=== PATIENT | male | born 1935 | race Caucasian/White ===

== ENCOUNTER 2016-10-31 13:41 | Inpatient (IN) ==
--- NOTE | 2016-10-31 14:51 | PROVIDER DOCUMENTATION ---
Addendum entered and electronically signed by Irma Franco Scribe 10/31/16 23:15 : EKG Interpretation - EKG Time of EKG reading by physician:: 23:14 EKG Read and Signed by:: Harpreet Etienne Rate: 73 Rhythm: sinus rhythm with 1st degree block Addendum entered and electronically signed by Irma Franco Scribe 10/31/16 19:31 : Departure - Departure Time of Disposition Order: 19:30 DIAGNOSIS: Double vision, Generalized weakness, Near syncope Fall Qualifiers: Encounter type: initial encounter Qualified Code(s): W19.XXXA - Unspecified fall, initial encounter Disposition: ADMITTED INPATIENT 09 Certified Medical Emergency: Emergent Condition: Stable Additional Instructions: FOLLOW UP WITH PRIMARY CARE DOCTOR ON FRIDAY FOLLOW UP WITH OPHTHALMOLOGY 1-2 WEEKS ED Follow Up Instructions: You have been treated by a care provider in the Emergency Department. These instructions are being provided to you so you can have an understanding of how to care for yourself upon discharge. Upon discharge from the Emergency Department, you are responsible for making arrangements for follow-up care by a physician of your choice. Take all prescribed medications as directed. Return to the Emergency Department immediately for any new or worsening symptoms. You may call the Physician Referral phone number at [phone] to obtain a list of Physicians who are taking new patients. Referrals: Zack Arreguin MD [Primary Care Provider] - Instructions: Fall Prevention and Home Safety, [id number] Addendum entered and electronically signed by Irma Franco Scribe 10/31/16 19:26 : Progress - XRAY XRAY Study: Chest Impression: Normal XRAY Interpretation: no pneumonia - CONSULTS/PCP/HOSPITALIST Notification #1 *Consult/PCP/Hospitalist*: Time Discussed: 19:25 Consult Disposition: Admit Addendum entered and electronically signed by Laisha Bueno Scribe 10/31/16 17: 51: Progress - CHANGE OF SHIFT REPORT (ED Provider) Report Given and Care Transferred to:: Time of Transfer: 18:00 Items Pending: Labs, Physician Consult/Arrival Comment: WAITING ON LABS TO COME BACK. IF NEEDED WILL CALL PCP FOR FURTHER TREATMENT. Addendum entered and electronically signed by Laisha Bueno Scribe 10/31/16 16: 40: Additional Progress - ADDITIONAL PLAN OF CARE/RESULTS Additional Progress/Plan/Lab Results: PT WAS WALKED TO BATHROOM BY NURSE AND NURSE WAS HOLDING PT UP WHOLE TIME DUE TO PT LEGS BEING WEAK. FAMILY IS REQUESTING FURTHER TREATMENT. DR LY HAS AGREED TO DO SOME LAB WORK AND CHECK KIDNEYS/BLOOD. PCP WILL BE CALLED WHEN ALL LAB RESULTS ARE BACK TO DISCUSS FURTHER TREATMENT . WORK UP HAVE BEEN ORDERED DUE TO PT WEAKNESS. - ADDITIONAL REASSESSMENT Time Reassessed: 16:35 Status: other (PT WAS WALKED TO BATHROOM BY NURSE AND NURSE WAS HOLDING PT DUE TO PT LEGS WEAK. FAMILY IS CONCEREND AND WOULD LIKE FURTHER TREATMENT. PT WILL NOW HAVE LABS DONE AND PCP WILL BE RECALLED TO DISCUSS FURTHER TREATMENT.) Original Note: HPI-General Adult - General Chief Complaint: Fall Stated Complaint: fall, L shoulder pain, double vision Time Seen by Provider: 10/31/16 13:48 Source: patient, family (CHILDREN) - History of Present Illness -Gen Adult Nature of Presenting Problems: 81 y/o M presents to ED cc of fall. Pt states he has been stressful situation with his being in rehab. Pt states he did not sleep well last night and was reaching for phone this am and had fell out of his bed hitting his head. Pt unsure where he hit his head but denies any LOC. Pt is denying any pain at this time. Pt states he takes 5 medications and is sure one is a blood thinner. Pt states he has been having some depression and anxiety. Pt states after hitting his head he has been dizzy and having of double vision . Daughter is concerned about pt eyes "not looking right". Location of Pain/Injury: reports: none Pain Radiation: reports: no radiation Quality of Pain: reports: none Severity: reports: mild Onset/Duration: reports: just prior to arrival Timing: reports: still present Context/Activities at Onset: reports: light activity Modifying Factors: improves with: nothing Associated Symptoms: reports: other (DOUBLE VISION/ DIZZY). denies: chest pain , fever/chills, nausea, shortness of breath, vomiting Similar Symptoms Previously?: No Recently seen or treated by another doctor?: No Review of Systems - Adult - REVIEW OF SYSTEMS - ADULT Constitutional: denies: chills, fever Eyes: reports: double vision, other (dizzy) Cardiovascular: denies: chest pain, palpitations Respiratory: denies: cough, shortness of breath Gastrointestinal: denies: abdominal pain, diarrhea, nausea, vomiting Neurological: reports: dizziness/vertigo. denies: headache/migraines, slurred speech, syncope Past History - Adult - PAST MEDICAL HISTORY-ADULT Review of Records: reports: Old Records Reviewed, Nursing Assessment Review Cardiovascular: reports: HTN, hyperlipidemia Endocrine/Immune: reports: Diabetes, thyroid disorder - IMMUNIZATION STATUS Childhood Immunizations: See Nurse Assessment Flu Vaccine: See Nurse Assessment - SOCIAL HISTORY Smoking: quit greater than 1 year Substance Use: denies Living Situation: care facility Physical Exam-General - PHYSICAL EXAM-ADULT Initial Vital Signs Reviewed: Yes - CONSTITUTIONAL General Appearance: appears well, alert, no apparent distress - EYES Eyes: PERRL/EOMI, pink conjunctivae, fundi clear, no AV nicking - HEAD, EARS, NOSE, MOUTH & THROAT HENMT: normocephalic/atraumatic, moist mucous membranes, normal ENT inspection - NECK Neck: non-tender, full range of motion, supple, normal inspection. negative: C- spine tenderness - RESPIRATORY Respiratory: chest non-tender, lungs clear, normal breath sounds - CARDIOVASCULAR Cardiovascular: normal peripheral pulses, regular rate, rhythm, no edema - GASTROINTESTINAL (ABDOMEN) Abdominal Exam: normal bowel sounds, non tender, soft - LYMPHATIC Lymphatic: no adenopathy - MUSCULOSKELETAL Back Exam: normal inspection, no CVA tenderness, no vertebral tenderness Extremity: normal range of motion, non-tender - SKIN Integumentary: normal color, normal turgor, warm/dry - NEUROLOGIC Neurologic: drop forger II-XII nml as tested, grossly normal, no motor/sensory deficits - PSYCHIATRIC Psych/Mental Status: normal mood/affect, normal thought content, normal thought process, oriented x 3 Progress - PLAN OF CARE/RESULTS Progress/Plan/Lab Results: PLAN: URINE,SCAN,EKG Orders Category Date Time Status FSBS [Finger Stick Blood Sugar (ED)] DIRECTED Care 10/31/16 14:37 Active HEAD W/O CONTRAST [CT] Stat Exams 10/31/16 14:35 Completed UA NIMS W/REFLEX CULT [URINALYSIS] Stat Lab 10/31/16 14:37 Uncollected Vital Signs - 24 hr 10/31/16 14:04 Temperature 98.2 F Pulse Rate 90 Respiratory 18 Rate Blood Pressure 135/72 O2 Sat by Pulse 96 Oximetry - REASSESSMENT Reassessment #1 Time Reassessed: 15:50 Status: improving Reassessment Comment: ready to go home. Will check FSBS. - CT/MRI 1 CT Study: Head Impression: Normal (atrophic changes and chronic microvascular ischmic changes. No evidence of intracranial injury. No hemorrhage or mass effect./) CT Results: see impression - CONSULTS/PCP/HOSPITALIST Notification #1 *Consult/PCP/Hospitalist*: PCP Time Discussed: 16:19 Consult Disposition: F/U in office (on friday) Departure - Departure Time of Disposition Order: 15:50 DIAGNOSIS: Double vision Fall Qualifiers: Encounter type: initial encounter Qualified Code(s): W19.XXXA - Unspecified fall, initial encounter Disposition: HOME 01 Certified Medical Emergency: Emergent Condition: Stable Additional Instructions: FOLLOW UP WITH PRIMARY CARE DOCTOR ON FRIDAY FOLLOW UP WITH OPHTHALMOLOGY 1-2 WEEKS ED Follow Up Instructions: You have been treated by a care provider in the Emergency Department. These instructions are being provided to you so you can have an understanding of how to care for yourself upon discharge. Upon discharge from the Emergency Department, you are responsible for making arrangements for follow-up care by a physician of your choice. Take all prescribed medications as directed. Return to the Emergency Department immediately for any new or worsening symptoms. You may call the Physician Referral phone number at [phone] to obtain a list of Physicians who are taking new patients. Referrals: Zack Arreguin MD [Primary Care Provider] - Attestation - Scribe Verification/Attestation Scribe:: Laisha Bueno Acting as Scribe for:: Arely Ly Scribe documention review:: This chart was documented by a scribe and accurately reflects the service the provider performed and the decisions made by the provider.
--- NOTE | 2016-10-31 15:37 | Diag Imaging Result Document ---
PROCEDURE NAME: HEAD W/O CONTRAST - 10/31/2016 CT HEAD WITHOUT CONTRAST: FINDINGS: A dose-reduction protocol was used. No comparison CT scans available. Exam is compared with the MRI brain of 04/29/2012. There are atrophic changes and chronic microvascular ischemic changes. There is no indication of recent infarct, although acute infarcts may not be immediately visible. There is no evidence of intracranial hemorrhage, mass effect or midline shift. There is no skull fracture. IMPRESSION: Atrophic changes and chronic microvascular ischemic changes. No evidence of intracranial injury. No hemorrhage or mass effect.
[2016-10-31 16:46] LABS: URINE CULTURE NEEDED? NO; URINE MICRO REVIEW NEEDED? NO; URINE SOURCE CLEAN CATCH
[2016-10-31 16:51] LABS: BILIRUBIN URINE NEGATIVE (NEGATIVE); BLOOD URINE NEGATIVE (NEGATIVE); COLOR YELLOW; GLUCOSE URINE NEGATIVE (NEGATIVE); LEUKOCYTES URINE NEGATIVE (NEGATIVE); NITRITE URINE NEGATIVE (NEGATIVE); PROTEIN URINE TRACE mg/dL (NEGATIVE); SP GRAVITY URINE 1.025; TURBIDITY URINE CLEAR (CLEAR); UROBILINOGEN URINE 8 mg/dL (NORMAL)
[2016-10-31 16:52] LABS: UR EPITHELIAL CELLS <10 /HPF (<10); URINE BACTERIA NEGATIVE /HPF; URINE RBC <10 /HPF (<10); URINE WBC <10 /HPF (<10)
[2016-10-31 17:42] LABS: MANUAL DIFF NEEDED? NO
[2016-10-31 17:47] LABS: BASO% 0.4 % (0.0-0.8); EOS# 0.01 X1000 (0.0-0.7); EOS% 0.1 % (0.0-10.0); HEMATOCRIT 43.7 % (42.0-52.0); HEMOGLOBIN 14.8 g/dL (14.0-18.0); IMM GRAN# 0.04 X1000 (0.0-0.04); IMM GRAN% 0.3 % (0.0-0.5); LYMPH# 2.37 X1000 (1.2-3.4); LYMPH% 16.9 % (20.5-51.1); MCH 29.5 PG (27-31); MCHC 33.9 g/dL (33-37); MCV 87.2 FL (81-99); MONO# 1.21 X1000 (0.11-0.59); MONO% 8.6 % (1.7-9.3); MPV 8.7 FL (7.4-10.4); NEUT% 73.7 % (42.2-75.2); PLT 345 X1000 (130-400); RBC 5.01 XMIL (4.7-6.1)
[2016-10-31 17:59] LABS: INR 1.06; PROTIME 11.2 Seconds (9.2-11.7); PTT 27.9 Seconds (22.0-36.0)
[2016-10-31 18:04] LABS: AGAP 17; ALBUMIN 4.3 g/dL (3.5-5.0); ALKALINE PHOSPHATASE 69 U/L (32-122); BUN 18 mg/dL (8-22); CALCIUM 9.6 mg/dL (8.8-10.2); CHLORIDE 98 mmol/L (98-107); CK PROFILE 56 U/L (24-204); COSMO 280; GOT 16 U/L (10-34); GPT 11 U/L (10-44); MAGNESIUM 2.1 mg/dL (1.5-2.7); POTASSIUM 4.3 mmol/L (3.5-5.1); SODIUM 139 mmol/L (136-145); TCO2 24 mmol/L (25-35); TOTAL BILIRUBIN 0.55 mg/dL (0.20-1.00); TOTAL PROTEIN 7.7 g/dL (6.3-8.3)
--- NOTE | 2016-10-31 18:33 | Diag Imaging Result Document ---
PROCEDURE NAME: CHEST-PORTABLE - 10/31/2016 PORTABLE CHEST: COMPARISON: No comparison films. FINDINGS: The lungs are well expanded. The heart is not enlarged. The vessels are not distended. There are no infiltrates. No pleural effusions. IMPRESSION: No pneumonia.
[2016-10-31] MEDS ORDERED: ZOFRAN IV PRN (23:21)
[2016-10-31] MEDS ORDERED: NS 1,000 ML IV SCH (23:21)
[2016-10-31] MEDS ORDERED: TYLENOL PO PRN (23:21)
[2016-10-31] MEDS ORDERED: PROTONIX IV SCH (23:30)
[2016-10-31] MEDS ORDERED: SODIUM CHLORIDE 0.9% INJ SCH (23:30)
[2016-10-31] MEDS: ASPIRIN PO SCH (23:44)
[2016-10-31] MEDS: LOVENOX SUBQ SCH (23:45)
--- NOTE | 2016-11-01 00:50 | HISTORY AND PHYSICAL ---
PRIMARY CARE PROVIDER: Dr. Arreguin. DATE AND TIME OF HISTORY AND PHYSICAL: October 31, 2016 at 8:00 p.m. CHIEF COMPLAINT: Weakness, fall, and double vision. HISTORY OF PRESENT ILLNESS: Mr. Gibbons is an 81-year-old male who presented to the ER this afternoon after having a fall this morning. Patient states that he was trying to get up out of bed and fell due to his legs feeling very weak. He said he fell out of the bed and reported that he also hit his head possibly on a bedside table. The patient denied any loss of consciousness and denies any headache at this time. He also did report some left shoulder pain at the time of the fall as well. He reports that he fell at 8:30 this morning and that since this time he has also had double vision. He also reported at the time of the fall that he was very dizzy though this has subsided at this time. Patient's family, which was his son at bedside, did also report that his right eye looked different as well. It does appear the patient has a slight droop noted to his right eye also. The patient does reside at [facility]. Patient denied any of these symptoms prior to his fall this morning though his son did report over the past 3 months that his father has progressively gotten more weak. He does require the assistance of a wheelchair and walker at [facility]. The patient also reported that at the time of the fall he did have a loss of bowel. He reports that he has approximately 2 bowel movements a day and that he has noticed over the past few months that his stools have been more loose than normal though he did report that they were of normal brown color and he denied any bloody or black, tarry stools. Patient also denied any numbness or tingling in extremities. Upon evaluation in the ER, a CT head was performed which did not show any acute intracranial abnormalities. Patient did have a slightly white blood cell count of 14,000 though his chest x- ray at this time showed no acute abnormalities. No pneumonia. His urinalysis did not show any signs of infection. He denied any headache, chest pain, shortness of breath, abdominal pain, nausea, vomiting, dysuria, or urinary frequency, and denied any pain, numbness, or tingling in extremities. At this time, we will admit the patient for further treatment and evaluation of his weakness and diplopia and we will evaluate him for possible CVA rule out. REVIEW OF SYSTEMS: A 10-point review of systems was conducted with the patient and all were negative except for pertinent positives mentioned in the above HPI. PAST MEDICAL HISTORY: 1. Diabetes mellitus type 2. 2. Hyperlipidemia. 3. Hypertension. 4. Hypothyroidism. PAST SURGICAL HISTORY: 1. Neck surgery. 2. Total left knee replacement. 3. Achilles tendon surgery on his right extremity. SOCIAL HISTORY: Patient is a former smoker. He reports that he smoked 2 packs per day for approximately 20 years though quit smoking at the age of 34. ALLERGIES: Patient reports no known allergies. HOME MEDICATIONS: 1. Prozac 40 mg p.o. daily. 2. Glipizide XL 2.5 mg 1 p.o. daily. 3. Levothyroxine 50 mcg 1 p.o. daily. 4. Lisinopril 5 mg tablet 1 p.o. daily. 5. Metformin 850 mg p.o. twice a day. 6. Pravastatin 40 mg 1 p.o. at bedtime. DIAGNOSTIC DATA: Laboratory results: White blood cell count 14. Hemoglobin 14.8. Hematocrit 43.7. Platelet count 345. PT 11.2. INR 1.06. PTT 27.9. D-dimer 0.16. Sodium 139. Potassium 4.3. Chloride 98. Bicarbonate 24. BUN is 18. Creatinine 0.9. Glucose 112. Calcium 9.6. Magnesium 2.1. Total bilirubin 0.55. AST 16. ALT 11. Alkaline phosphatase 69. CK is 56. Troponin was less than 0.01. ProBNP 147. A urinalysis obtained via clean catch was positive for trace protein. It was negative for ketones, blood, nitrites, leukocytes, or bacteria. CT of the head noncontrast showed atrophic changes and chronic microvascular ischemic changes though no evidence of intracranial injury. No hemorrhage or mass effect. Chest portable showed no pneumonia. EKG showed a sinus rhythm with a first-degree AV block and nonspecific T-wave abnormality at a rate of 73. PHYSICAL EXAMINATION: VITAL SIGNS: Temperature 98.2, heart rate 87, respirations 18, blood pressure 138/78, oxygen saturation is 97% room air. GENERAL: Mr. Gibbons is a very pleasant 81-year-old male who is resting comfortably in the ER stretcher in no acute distress, is awake, alert, able to answer all questions appropriately. HEENT: Head is atraumatic, normocephalic. Pupils are equal, round, reactive to light, are 3 mm bilaterally and brisk. Extraocular movements were intact except for the patient did have impaired adduction of his right eye. He also did report some double vision but this was only assessed when the patient vision was tested with both eyes. This was not present when the patient's eyes were tested unilaterally. Sclerae are white. No lesions noted. Subconjunctivae were pink. Oral mucosa is moist. Oropharynx is clear. NECK: Supple. Trachea midline. CARDIOVASCULAR: Patient has a normal S1, S2. No murmurs, gallops, or rubs appreciated with a regular rate and rhythm. PULMONARY: Patient has symmetrical chest expansion bilaterally. Lung sounds are clear to auscultation in bilateral full wagner. ABDOMEN: Soft, nontender, nondistended though the patient did have a slightly protuberant abdomen noted. Bowel sounds were present in all 4 quadrants, were normoactive. EXTREMITIES: No cyanosis, clubbing or edema noted. Pulse, motor, and sensory are intact in all extremities as well. Pedal pulses were 3 plus bilaterally. MUSCULOSKELETAL: Patient did have good range of motion in all extremities. Muscle grasp was equal bilaterally though the patient did have some slight weakness noted in his right lower extremity compared to the left. INTEGUMENTARY: Patient's skin is pink, warm, dry, and intact. No lesions or sores noted. NEUROLOGICAL: Patient is alert and oriented times 3. Cranial nerves II through XII are grossly intact except for the above abnormality mentioned with his extraocular movements and having impaired adduction of the right eye. He also had reported slight weakness noted in his right lower extremity on examination compared to his left and the patient also did have a slight droop noted to his right eye and right eyebrow on examination though he did not have any facial droop noted. No arm drift noted and speech was clear and understandable. ASSESSMENT AND PLAN: 1. Cerebrovascular accident. Given that the patient does have some drooping noted to his right eye as well as the right-sided weakness, we are concerned that he may have a CVA. Also, with the impaired adduction of his right eye we are concerned also for him having some medial rectus muscle weakness. We have ordered for the patient to have a neurology consult with Dr. Marino as well as an MRA and MRI of the brain as well as an MRA of the neck in the morning. We have also ordered an echocardiogram as well. We will give him an 81 mg aspirin daily. We will do neurologic checks as well as a swallowing screen and he will remain NPO until this is performed. We will also implement aspiration precautions as well and continue to monitor his neurologic status closely and await the results of these studies. 2. Weakness. We will continue with treatment as mentioned per number 1. 3. Diplopia. We will continue with treatment as mentioned for number 1. 4. Leukocytosis. The patient did sustain a fall. This could be reactive related to that though at this time the patient does not exhibit any signs of infection. His chest x-ray was clear. His urine is clear. He does not complain of any chest, shortness of breath, or abdominal pain, or urinary symptoms, and denied any fever, chills, or body aches. We will continue to monitor this as well. 5. Diabetes mellitus type 2. Given that the patient will receive contrast in the morning for his MRI, we will hold his metformin and glipizide and place him on a low dose sliding scale lispro insulin. We also placed an order for a hemoglobin A1c. 6. Hypertension. We will continue the patient's blood pressure medicines of lisinopril and continue to follow. 7. Hyperlipidemia. We will continue the patient's pravastatin and have ordered the patient to have a lipid profile drawn in the morning and we will await those results. 8. Hypothyroidism. We have ordered a TSH and are awaiting those results at this time and we will continue the patient levothyroxine. The patient placed on the medical floor with telemetry. He will have vital signs q.4 hours. DVT prophylaxis provided with Lovenox 40 mg subcutaneous q.24 hours. We will do strict intake and output. We have also placed a consult with Case Management and Draw Press Operator for possible rehab placement upon discharge. Further orders and recommendations pending hospital course, diagnostic studies, and physician evaluation. Dictated by MALENA Hodge for Chad Tejada MD
[2016-11-01] MEDS: HUMALOG SUBQ SCH ×5 (04:49→21:51)
[2016-11-01 05:31] LABS: MANUAL DIFF NEEDED? NO
--- NOTE | 2016-11-01 05:32 | EKG Report ---
Test Performed on : 10/31/2016 9:22:32 PM Test Reason : Stroke,Weakness, and Fall Blood Pressure : / mmHG Vent. Rate : 073 BPM Atrial Rate : 073 BPM P-R Int : 236 ms QRS Dur : 078 ms QT Int : 378 ms P-R-T Axes : 075 017 076 degrees QTc Int : 416 ms Sinus rhythm. with 1st degree AV block. Nonspecific T wave abnormality Abnormal ECG No previous ECGs available Unconfirmed Result
[2016-11-01 05:35] LABS: BASO% 0.5 % (0.0-0.8); EOS% 1.7 % (0.0-10.0); HEMATOCRIT 40.5 % (42.0-52.0); HEMOGLOBIN 13.6 g/dL (14.0-18.0); IMM GRAN# 0.03 X1000 (0.0-0.04); IMM GRAN% 0.2 % (0.0-0.5); LYMPH# 3.52 X1000 (1.2-3.4); LYMPH% 29.1 % (20.5-51.1); MCH 29.6 PG (27-31); MCHC 33.6 g/dL (33-37); MONO# 1.29 X1000 (0.11-0.59); MONO% 10.7 % (1.7-9.3); MPV 8.5 FL (7.4-10.4); NEUT% 57.8 % (42.2-75.2); PLT 308 X1000 (130-400)
[2016-11-01 05:48] LABS: HEMOGLOBIN A1C 5.3 % (4.8-6.0)
[2016-11-01 05:50] LABS: AGAP 15; BUN 17 mg/dL (8-22); CALCIUM 8.9 mg/dL (8.8-10.2); CHLORIDE 102 mmol/L (98-107); COSMO 280; POTASSIUM 3.9 mmol/L (3.5-5.1); SODIUM 139 mmol/L (136-145); TCO2 22 mmol/L (25-35)
--- NOTE | 2016-11-01 09:25 | Diag Imaging Result Document ---
PROCEDURE NAME: MRI BRAIN W W/O CONTRAST - 11/01/2016 MRI BRAIN WITHOUT AND WITH INTRAVENOUS CONTRAST: COMPARISON: 10/31/2016, 04/29/2012. FINDINGS: Stable diffuse atrophy. Stable moderate periventricular white matter chronic microvascular disease. No intracranial mass or hemorrhage. No restricted diffusion. No abnormal contrast enhancement. Midline structures are grossly normal. IMPRESSION: Stable atrophy and chronic microvascular disease. No acute abnormality.
--- NOTE | 2016-11-01 09:51 | Diag Imaging Result Document ---
PROCEDURE NAME: MRA BRAIN W/O CONTRAST - 11/01/2016 MR ANGIOGRAM OF THE HEAD: COMPARISON: None. FINDINGS: Noncontrast time of flight technique was used. There is loss of signal throughout the basilar artery above the level of the anterior inferior cerebellar arteries. The vertebral arteries, themselves, are patent. There is re-appearance of signal at the bifurcation into the posterior cerebral arteries. There are large, visible bilateral posterior communicating arteries. The posterior cerebral arteries, themselves, are patent and normal in caliber. The internal carotid arteries, anterior and middle cerebral arteries are patent. 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 This is age indeterminate. There is reconstitution of both posterior cerebral arteries by relatively large posterior communicating arteries bilaterally.
--- NOTE | 2016-11-01 10:06 | Diag Imaging Result Document ---
PROCEDURE NAME: MRA NECK W/CONT - 11/01/2016 MR ANGIOGRAM OF THE NECK WITH INTRAVENOUS CONTRAST: COMPARISON: None. FINDINGS: The great vessel origins are normal. The carotid artery systems are patent bilaterally. There is note of a looping redundancy of the mid left internal carotid artery. No evidence of aneurysm or obstruction. The proximal vertebral arteries are patent with the left larger than the right. There is loss of signal of the right vertebral artery at about the level of the dens, within the central canal. There is also absent signal throughout the proximal basilar artery. IMPRESSION: Signal loss in the right vertebral artery distally and the majority of the basilar artery consistent with occlusion. These are age indeterminate.
[2016-11-01] MEDS: ASPIRIN PO SCH (10:37)
[2016-11-01] MEDS ORDERED: NS 1,000 ML IV SCH (11:00)
--- NOTE | 2016-11-01 11:46 | PROGRESS NOTE ---
DATE: 11/01/2016 SUBJECTIVE: I received a call last night from Dr. Morrow, who had stated that the patient was going home. She had described his diplopia and had no finding on CT scan. Apparently, the patient was unable to get up even with assistance and had marked exotropia of the right eye, and it was decided to keep him in the hospital. The patient's family who were present at the time of my examination this morning, said that last night, his eyes appeared to be looking in 2 different directions. He had severe diplopia. This morning, when we came in, this was all completely resolved. The record from the emergency room and the admission H P by the hospitalist were reviewed in their entirety. OBJECTIVE: Vital Signs: 98.5, 61, 16, 121/62. PHYSICAL EXAMINATION: Lungs: Clear. Cardiovascular: Regular. Neurologic: Patient has normal conjugate gaze. He denies any diplopia looking at me. He has no focal neurological deficits. 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 The remainder of his neck and head studies were generally appropriate for age and normal. ASSESSMENT AND PLAN: 1. The patient's neurological deficit seems to have resolved. I am not sure that I can relate this completely to the basilar artery occlusion although some of his right-sided symptoms would certainly be appropriate for this. The family was informed that there is very little we can do for that other than maintaining reasonable anticoagulation. Dr. Marino has been consulted for his advice in this matter as well. 2. The patient's family also complained of continued weakness and unsteadiness on his feet. He is exhausted by short trips across the floor with a walker because of his weakness in his legs and general unsteadiness. They would like to have him admitted to a rehabilitation to the facility for 3-4 weeks of more intensive physical therapy then he is getting at his assisted living situation. They basically state that he stays in bed all day and only travels short distances. 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 3. The patient's family states that he is markedly depressed as well, has frequent crying spells and continuing tells them that he is depressed. His level of activity is down quite a bit. I plan to start some citalopram and some low-dose medication to make sure that he is getting adequate sleep at night. It is the suspicion of the family that he is up and down all night grazing and tossing and turning in the bed. 4. The patient's medication summary and reconciliation medications appears to be incomplete on the chart. I am not sure if he came with documents from [facility], but I will have to check that against my last records from the office to see if there are any medications that he is currently taking.
--- NOTE | 2016-11-01 16:38 | ECHO REPORT ---
ORDER DATE: 11/01/2016 PROCEDURE: This is a 2D, M-mode, color Doppler exam. This is a technically limited study. INTERPRETATION: 1. The left ventricle is very poorly visualized. Not all myocardial segments are well visualized. Overall systolic function does appear to be preserved with left ventricular ejection fraction of at least 50%. 2. The left and right atria are difficult to fully visualize. The right ventricle is not visualized. 3. There is no obvious pericardial effusion. 4. The aortic valve appears to be trileaflet. There does not appear to be increased gradient across the valve on Doppler. 5. The mitral valve is intact. The tricuspid valve is poorly visualized. 6. The peak pulmonary artery pressure could not be accurately assessed in this study. 7. No obvious intracardiac masses or thrombi are seen although again images are very limited.
[2016-11-01] MEDS: RESTORIL PO SCH (21:55)
[2016-11-01] MEDS: LOVENOX SUBQ SCH ×2 (21:55→23:17)
[2016-11-02] MEDS: HUMALOG SUBQ SCH ×4 (05:59→20:58)
[2016-11-02] MEDS: CELEXA PO SCH (10:31)
[2016-11-02] MEDS: ASPIRIN PO SCH (10:32)
[2016-11-02] MEDS: METANX PO SCH (10:32)
[2016-11-02] MEDS: VITAMIN B-1 PO SCH (10:32)
--- NOTE | 2016-11-02 12:36 | PROGRESS NOTE ---
DATE: 11/02/2016 SUBJECTIVE: Patient was admitted per Dr. Tejada and following by Dr. Arreguin. I think he is patient. He had weakness spell and double vision. This 81-year-old male presented to the emergency room after a fall. That morning he states he was trying to get up out of bed and due to his legs feeling very weak he said that he fell out of bed. It was reported that he hit his possibly on the bedside table. The patient denied any loss of consciousness. He denied any headache at that time. He did report some left shoulder pain at the time of the fall as well. Reports that he fell at 8:30 in the morning and he had double vision. Also reported that at the time of the fall he was very dizzy though this got a little better over time. The son was at the bedside and said that his right eye looked different as well. He seemed to have a slight droop in his right eye. PAST MEDICAL HISTORY: Diabetes mellitus type 2, hyperlipidemia, hypertension, hypothyroidism. DIAGNOSTIC DATA: CT of the head was performed and did not show any acute intracranial abnormalities. Patient did have elevated white count 13640. Chest x-ray showed no acute abnormalities. No pneumonia. The patient was awake today. He states he still cannot walk very well. Feels a little dizzy. He has had an MRI and MRA of his brain. 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 This is age indeterminate. There is reconstitution of both posterior cerebral arteries but with relatively large posterior communicating arteries bilaterally. MRI of the brain, stable atrophy, chronic microvascular disease. No acute abnormality. Neck MRA, signal loss of the right vertebral artery distally and the majority of the basilar artery consistent with occlusion. Age indeterminate. OBJECTIVE: Vital Signs: Today he is afebrile, temperature 97.9 degrees, pulse 70, respirations 18, blood pressure 149/82. Lungs: Clear in all lung wagner. Cardiovascular: Regular rhythm and rate without murmur or S3. O2 saturation was 98%. LABORATORY DATA: Lab from yesterday reviewed. Hematocrit stable at 40. Blood sugar is 159-101- 151. ASSESSMENT AND PLAN: 1. Patient's neurologic deficits seem to have resolved. I am not sure. He still has some dizziness. He does have some posterior circulation occlusion which is age indeterminate. Not sure we can relate this complete with a basilar artery occlusion although some of his right- sided symptoms could certainly be appropriate for this. There is very little we can do further other than maintaining reasonable anticoagulation. Dr. Marino is consulted and he is going to weigh in as well. 2. The family has complained also he has continued weakness and unsteadiness in his feet and is exhausted by short trips across the floor with a walker, because of his weakness in his legs. I would like to try and get him into rehab and see if we can improve on this. 3. Patient is concerned, he seems to have symptoms of depression, frequent crying, continues to tell me that he is depressed. His level of activity is down quite a bit. Dr. Arreguin just started him on citalopram. That is the most dosed medication to make sure that he is getting adequate sleep. I have reviewed his orders. He does have physical therapy involved. I think we will get social service to look and see about possible rehab situation. He is on thiamine 100 mg a day, Methyl B12 and folate 1 a day. Restoril 50 mg at bedtime. Celexa 10 mg q.a.m. Lovenox 40 mg subcutaneously q.24 hours. Aspirin 81 mg a day.
[2016-11-02] MEDS: RESTORIL PO SCH (20:58)
[2016-11-02] MEDS: LOVENOX SUBQ SCH ×2 (21:00→22:59)
[2016-11-03] MEDS: HUMALOG SUBQ SCH ×4 (05:59→22:19)
[2016-11-03 07:03] LABS: FREE T4 1.16 ng/dL (0.93-1.70)
[2016-11-03] MEDS: ASPIRIN PO SCH (09:12)
[2016-11-03] MEDS: METANX PO SCH (09:12)
[2016-11-03] MEDS: VITAMIN B-1 PO SCH (09:13)
[2016-11-03] MEDS: CELEXA PO SCH (09:13)
[2016-11-03] MEDS: RESTORIL PO SCH (22:19)
[2016-11-03] MEDS: LOVENOX SUBQ SCH (23:26)
[2016-11-04] MEDS: HUMALOG SUBQ SCH ×4 (06:43→20:10)
[2016-11-04] MEDS ORDERED: SYNTHROID PO SCH (09:00)
[2016-11-04] MEDS: ASPIRIN PO SCH (09:32)
[2016-11-04] MEDS: METANX PO SCH (09:32)
[2016-11-04] MEDS: VITAMIN B-1 PO SCH (09:33)
[2016-11-04] MEDS: PRINIVIL PO SCH (09:33)
[2016-11-04] MEDS: GLUCOTROL XL PO SCH (09:36)
--- NOTE | 2016-11-04 09:44 | PROGRESS NOTE ---
DATE: 11/04/2016 SUBJECTIVE: The patient was asleep but easily arousable. He has no complaints other than being in the hospital. I spoke at length with both of his daughters and explained the plan of care and results that we had gotten thus far in looking at his acute neurological deficit, which seems to have resolved. The patient is sleeping fairly well. He is getting physical therapy. We are trying to arrange a bed at a rehabilitation unit at [facility]. PHYSICAL EXAMINATION: Vital Signs: Temperature 97.6 degrees, blood pressure is 150/78, pulse rate is 66. Lungs: Clear. Cardiovascular: Regular. Neurologic/psychological: He is alert. He seems reasonably oriented and is quick to answer. His answers seem appropriate. LABORATORIES: None drawn. ASSESSMENT AND PLAN: 1. We are seeking a rehab bed at [facility]. 2. The patient is on Restoril for sleep and this seems to be working. He is alert and arousable during the day and seems to be getting rested. He is also on citalopram for mood elevation. Will monitor progress in that regard. 3. We will continue to monitor blood pressure.
[2016-11-04] MEDS: SYNTHROID PO SCH (10:02)
--- NOTE | 2016-11-04 11:27 | PROGRESS NOTE ---
DATE: 11/04/2016 ROOM NUMBER: [id number]. SUBJECTIVE: Mr. Gibbons is awake, alert, attentive. I believe he may be close to baseline mentally. He told me that he was unsteady with walking from the bedside to the bathroom, but he believes that is about his baseline, much improved compared to his gait ability on admission. PLAN: I agree with plans for rehab placement. I do not have any new suggestions or anything new to add to the thoughts dictated on initial consult note. Thanks for allowing me to follow Mr. Gibbons.
[2016-11-04] MEDS: LOVENOX SUBQ SCH (20:09)
[2016-11-04] MEDS: PRAVACHOL PO SCH (20:09)
[2016-11-04] MEDS: RESTORIL PO SCH (22:20)
[2016-11-05] MEDS: HUMALOG SUBQ SCH ×4 (07:01→21:08)
[2016-11-05] MEDS: SYNTHROID PO SCH (07:01)
--- NOTE | 2016-11-05 08:48 | PROGRESS NOTE ---
DATE: 11/05/2016 SUBJECTIVE: The patient has no complaints. He states physical therapy did not come in yesterday. He states that he did not get up in the chair 3 times a day as ordered. He states that he does not want to go to rehabilitation. OBJECTIVE: Vital Signs: 98.3, 53, 16, 139/82. Physical Examination: General: He is well-developed, obese, white male, in no acute distress. Lungs: Clear. Cardiovascular: Regular. Neuropsychiatric: He generally appears to be oriented. He is alert, conversive, and generally appropriate. ASSESSMENT AND PLAN: The patient's transient ischemic attack symptoms have resolved. His other parameters are well controlled. He is ready for rehabilitation as soon as a bed becomes available.
[2016-11-05] MEDS: METANX PO SCH (09:44)
[2016-11-05] MEDS: CELEXA PO SCH (09:44)
[2016-11-05] MEDS: ASPIRIN PO SCH (09:45)
[2016-11-05] MEDS: VITAMIN B-1 PO SCH (09:45)
[2016-11-05] MEDS: PRINIVIL PO SCH (09:45)
[2016-11-05] MEDS: GLUCOTROL XL PO SCH (09:46)
--- NOTE | 2016-11-05 11:14 | PROGRESS NOTE ---
DATE: 11/05/2016 Mr. Gibbons is awake, alert, bright, attentive, cheerful today. I observed him walking with vigorous physical therapy assistance and he was using his front wheeled walker. His gait continues unsteady. Although he reports he may be close to baseline with gait, I believe he could benefit from continued aggressive physical therapy in a rehab setting if that can be arranged. I do not have any other suggestion from neurologic standpoint. Thanks for asking me to see Mr. Gibbons. [facility]
[2016-11-05] MEDS: PRAVACHOL PO SCH (21:04)
[2016-11-05] MEDS: LOVENOX SUBQ SCH (21:04)
[2016-11-05] MEDS: RESTORIL PO SCH (21:04)
[2016-11-06] MEDS: SYNTHROID PO SCH (06:43)
[2016-11-06] MEDS: HUMALOG SUBQ SCH ×4 (07:00→19:50)
[2016-11-06] MEDS: ASPIRIN PO SCH (09:55)
[2016-11-06] MEDS: PRINIVIL PO SCH (09:55)
[2016-11-06] MEDS: CELEXA PO SCH (09:56)
[2016-11-06] MEDS: VITAMIN B-1 PO SCH (09:56)
[2016-11-06] MEDS: GLUCOTROL XL PO SCH (09:56)
[2016-11-06] MEDS: METANX PO SCH (09:57)
--- NOTE | 2016-11-06 09:57 | DISCHARGE SUMMARY ---
ADMISSION DATE: 10/31/2016 DISCHARGE DATE: DISCHARGE DIAGNOSES: 1. Transient ischemic attack. 2. Transient diplopia. 3. Right basilar artery occlusion. 4. Diabetes. 5. Depression. 6. Deconditioning. 7. History of alcoholism. 8. Hypothyroidism. 9. Insomnia. 10. Hypercholesterolemia. 11. Noninsulin-dependent diabetes mellitus. CONSULTATIONS: Petar Marino MD. HOSPITAL COURSE: The patient was admitted to the hospital after suffering an episode of diplopia. It was questionable whether this occurred before or after a fall in which he struck his head. The patient's CT scan was negative in the emergency room. The patient also had a marked exotropia of his right eye during this initial episode. The patient's family felt that they could not take him home so he was admitted to the hospital. The following day the patient had an MRI which showed a questionable right basilar artery occlusion but no evidence of acute stroke. It was questionable whether this was an old finding but it did seem to correlate somewhat with his physical symptomatology. His diplopia and exotropia resolved in short order and he had no recurrence of this. The patient had a neck MRA as well which did not show any significant blockage. We did not get a carotid Doppler. In discussion with the patient's family, he has been markedly depressed and has very little motivation to get out of bed. He is grossly deconditioned and continues to have ongoing dizziness. Physical therapy was involved during his hospitalization. He seemed to do pretty well when motivated. He also had insomnia and a mild sleep inducing agent was added as well as a change in his antidepressant. He seemed to tolerate this quite well. It is also noted that the patient had a grossly normal echocardiogram during his hospitalization. The patient is discharged to rehabilitation to try and gain his feet and gain strength and stability with his gait. They are continuing to monitor thyroid, blood pressure, cholesterol, and other typical medical parameters. He can follow up 2 weeks post discharge from rehab.
[2016-11-06] MEDS: PRAVACHOL PO SCH (19:57)
[2016-11-06] MEDS: LOVENOX SUBQ SCH (19:59)
[2016-11-06] MEDS ORDERED: RESTORIL PO SCH (21:00)
[2016-11-07] MEDS: PRAVACHOL PO SCH (03:59)
[2016-11-07] MEDS: LOVENOX SUBQ SCH (03:59)
[2016-11-07] MEDS: SYNTHROID PO SCH ×2 (05:36→07:51)
[2016-11-07] MEDS: HUMALOG SUBQ SCH ×2 (07:00→12:22)
[2016-11-07] MEDS: VITAMIN B-1 PO SCH (08:26)
[2016-11-07] MEDS: METANX PO SCH (08:26)
[2016-11-07] MEDS: CELEXA PO SCH (08:26)
[2016-11-07] MEDS: ASPIRIN PO SCH (08:26)
[2016-11-07] MEDS: GLUCOTROL XL PO SCH (08:27)
[2016-11-07] MEDS: PRINIVIL PO SCH (08:27)
[2016-11-07 11:51] VITALS: BP 145/83
[2016-11-07] MEDS ORDERED: RESTORIL PO SCH (21:00)
--- NOTE | 2016-11-08 02:47 | DISCHARGE SUMMARY ---
ADMISSION DATE: 10/31/2016 DISCHARGE DATE: 11/07/2016 ADDENDUM REPORT: The patient was scheduled for discharge yesterday but because of lateness in the day Social Work and the facility decided to put it off until this morning. The patient had no incidents overnight. We did make an attempt to reduce his Restoril dose to 7.5 mg. Unfortunately this failed and he will require 15 mg of temazepam for sleep. The patient was informed that the harder he works at rehabilitation the quicker he will get out. I would like to have a followup with him about 2 weeks post discharge from that facility.
== END 2016-11-07 13:27 | DRG 69 ==
LOC: EDBD → ED 13:41 → 4N 21:36
PROVIDERS: ADMIT Internal Medicine; ATTEND Internal Medicine
DX: G45.9 Transient cerebral ischemic attack, unspecified (principal); E11.9 Type 2 diabetes mellitus without complications; I10 Essential (primary) hypertension; F32.9 Major depressive disorder, single episode, unspecified; D72.829 Elevated white blood cell count, unspecified; I65.1 Occlusion and stenosis of basilar artery; W06.XXXA Fall from bed, initial encounter; E03.9 Hypothyroidism, unspecified; Z96.652 Presence of left artificial knee joint; Z87.891 Personal history of nicotine dependence; R26.81 Unsteadiness on feet; G47.00 Insomnia, unspecified; E78.00 Pure hypercholesterolemia, unspecified; Z79.84 Long term (current) use of oral hypoglycemic drugs; Z79.899 Other long term (current) drug therapy; M25.512 Pain in left shoulder; F10.21 Alcohol dependence, in remission; R53.1 Weakness; E66.9 Obesity, unspecified; Z68.31 Body mass index [BMI] 31.0-31.9, adult; R42 Dizziness and giddiness
CPT/HCPCS: 70450; 70544; 70548; 70553; 71010; 80048; 80053; 80061; 81001; 82550; 82607; 82746; 82948; 83036; 83721; 83735; 83880; 84439; 84443; 84484; 85025; 85379; 85610; 85730; 86140; 92523; 93005; 93306; 94761; A9579; C9113; J1650; J1815; J7030; 92610-GN; 97001-GP; 97110-GP; 97116-GP; 97530-GP; S0164